=== PATIENT | male | born 1990 | race Caucasian/White ===

== ENCOUNTER 2017-07-16 15:00 | Emergency (ER) | payer SELFPAY ==
--- NOTE | 2017-07-16 16:34 | RAD ---
THREE VIEWS RIGHT SHOULDER 07/16/17 HISTORY: Right shoulder injury after a fall at work on Wednesday. Patient continues to have right shoulder pain. FINDINGS: There is no evidence of a fracture, dislocation, or other osseous abnormality involving the right gregory ulder. IMPRESSION: No acute osseous abnormality. POS: [facility]
== END 2017-07-16 16:33 | disposition home or self-care (01) ==
LOC: ERS 15:00
DX: M25.561 Pain in right knee (principal); F17.210 Nicotine dependence, cigarettes, uncomplicated; W01.0XXA Fall on same level from slipping, tripping and stumbling without subsequent striking against object, initial encounter; Y92.69 Other specified industrial and construction area as the place of occurrence of the external cause; Y99.0 Civilian activity done for income or pay

== ENCOUNTER 2019-01-17 14:38 | Emergency (ER) | payer SELFPAY ==
--- NOTE | 2019-01-17 16:27 | RAD ---
RIGHT ANKLE THREE VIEWS: 01/17/19 HISTORY: Injury. Right ankle pain. FINDINGS/IMPRESSION: Soft tissue swelling is present. The ankle mortise is maintained. No acute fracture or dislocation is identified. POS: [facility]
== END 2019-01-17 16:45 | disposition home or self-care (01) ==
LOC: ERS 14:38
DX: S93.401A Sprain of unspecified ligament of right ankle, initial encounter (principal); F17.210 Nicotine dependence, cigarettes, uncomplicated; F43.10 Post-traumatic stress disorder, unspecified; W19.XXXA Unspecified fall, initial encounter

== ENCOUNTER 2019-03-14 23:39 | Emergency (ER) | payer SELFPAY ==
[2019-03-15] MEDS ORDERED: Ibuprofen 800 MG TAB ONE (00:34)
--- NOTE | 2019-03-15 07:41 | RAD ---
EXAM: 3 views of the right foot HISTORY: Right fifth toe pain COMPARISON: None FINDINGS: 3 views of the right foot shows no evidence of acute fracture or dislocation of the bones o f the foot. There is a questionable small avulsion fracture off the posterior malleolus of the tibia. Mild soft tissue swelling is seen. No degenerative changes are present. IMPRESSION: Possible distal tibial avulsion fracture
== END 2019-03-15 02:00 | disposition home or self-care (01) ==
LOC: ERS 23:39
DX: M79.671 Pain in right foot (principal); F20.9 Schizophrenia, unspecified; F31.9 Bipolar disorder, unspecified; F43.10 Post-traumatic stress disorder, unspecified

== ENCOUNTER 2021-02-18 20:35 | Emergency (ER) | payer SELFPAY | END 2021-02-18 22:22 | disposition home or self-care (01) | LOC: ERS 20:35 | DX: S93.601A Unspecified sprain of right foot, initial encounter (principal); F17.210 Nicotine dependence, cigarettes, uncomplicated; W22.8XXA Striking against or struck by other objects, initial encounter; Y93.66 Activity, soccer ==

== ENCOUNTER 2023-02-25 12:57 | Emergency (ER) | payer SELFPAY ==
[2023-02-25] MEDS ORDERED: Ondansetron PF 4 MG/2 ML Vial ONE (13:14)
[2023-02-25 13:38] LABS: #Monocytes 1.2 thou/uL (0.11-0.59); #Neutrophils 12.4 thou/uL (1.40-6.50); %Basophils 0.1 % (0.0-1.0); %Eosinophils 0.2 % (0.0-10.0); %Lymphocytes 6.8 % (21.0-51.0); %Monocytes 8.1 % (0.0-10.0); %Neutrophils 84.3 % (42.0-75.0); Hemoglobin 14.7 g/dL (14.0-18.0); Mean Corpuscular HGB CONC 33.9 g/dL (32.0-36.0); Mean Corpuscular Hemoglobin 30.9 pg (27.0-31.0); Mean Platelet Volume 9.9 fL (7.4-10.4); Platelet Count 181 10x3/uL (130-400); RBC Distribution Width 12.6 % (11.5-14.5); Red Blood Cell (RBC) Count 4.76 mill/uL (4.70-6.10); White Blood Cell (WBC) Count 14.8 10x3/uL (4.8-10.8)
[2023-02-25] MEDS ORDERED: Lidocaine 2% Viscous Solution 10 ML, Aluminum & Magnesium Hydroxide 30 ML SSW SCH (13:45)
[2023-02-25 14:02] LABS: ALT (SGPT) 20 U/L (8-55); AST (SGOT) 20 U/L (5-34); Albumin 4.3 g/dL (3.5-5.0); Alkaline Phosphatase 89 U/L (40-110); Anion Gap 13 mmol/L (10-20); BUN (Urea Nitrogen) 14 mg/dL (8.9-20.6); Bilirubin, Total 1.3 mg/dL (0.2-1.2); Calc. Creatinine Clearance 0 mL/min (70-130); Calcium 9.7 mg/dL (7.8-10.44); Carbon Dioxide 27 mmol/L (22-29); Chloride 103 mmol/L (98-107); Estimated GFR 104; Globulin 3.5 g/dL (2.4-3.5); Glucose 92 mg/dL (70-105); Lipase 17 U/L (8-78); Potassium 3.9 mmol/L (3.5-5.1); Protein, Total 7.8 g/dL (6.0-8.3); Sodium 139 mmol/L (136-145)
[2023-02-25] MEDS ORDERED: Mag-Al 1200 mg/1200 mg/30 ML UDCUP ONE (14:43)
== END 2023-02-25 15:55 | disposition home or self-care (01) ==
LOC: ERS 12:57
DX: R11.2 Nausea with vomiting, unspecified (principal); F17.210 Nicotine dependence, cigarettes, uncomplicated
CPT/HCPCS: 71046; 80053; 83690; 84484; 85025; 93005; 96361; 96374; J2405